=== PATIENT | female | born 1935 | race Caucasian/White ===

== ENCOUNTER 2017-10-23 08:18 | Observation (INO) | payer MEDICARE ==
--- NOTE | 2017-10-20 23:42 | HP ---
CC: Dr. Brent Stevens; Dr. Carlos Partida; Dr. Carol Arias, Cardiology, [facility] * ADMISSION HISTORY AND PHYSICAL: DATE OF ADMISSION: 10/23/17 ATTENDING SURGEON: Dr. Ronald Vargas.* (DICTATED BY MEAGHAN ALBERTS) CHIEF COMPLAINT: Left breast cancer. HISTORY OF PRESENT ILLNESS: This is an 82-year-old female, who is 2 years status post right mastectomy for breast cancer and followed by Dr. Partida, currently on Arimidex therapy. In early August she noticed a new left breast lump herself. She underwent mammography on 09/18/17, which showed 2 groups of microcalcifications in the superior portion of the left breast (medial and lateral) with a significant change in the number of microcalcifications. A biopsy was recommended. An ultrasound done the same date showed some dilated ducts at the 9 o'clock position of the breast, but otherwise, no sonographically identified mass per se. 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 I do not have ER or CT studies immediately available. The patient met with Dr. Vargas on 10/13/17. She felt strongly that she would prefer to undergo left mastectomy to be "done with it." Dr. Vargas has discussed with her the indication for surgery, the risks, benefits and alternatives and she would like to proceed as scheduled with left mastectomy. She expressed no interest in undergoing reconstruction. PAST MEDICAL HISTORY: Coronary artery disease, status post PCI with stenting and followed by Dr. Arias (see separate note). She is also treated for type 2 diabetes, hyperlipidemia, osteoporosis, anxiety and depression. PAST SURGICAL HISTORY: Previous surgeries include PCI with stent placement, pacemaker placement, total left hip arthroplasty and laparoscopic cholecystectomy. No reported surgical or anesthesia complications. CURRENT MEDICATIONS: 1. Oxybutynin ER 5 mg once daily. 2. Metoprolol succinate ER 25 mg once daily. 3. Ezetimibe 10 mg once daily. 4. Digoxin 125 mcg once daily. 5. Nitroglycerin 0.4 mg sublingual p.r.n. chest pain (has never used). 6. Pradaxa 150 mg b.i.d. (the patient was instructed to hold after her dose, though per Dr. Arias's note it could be stopped 48 hours preop). 7. Anastrozole 1 mg once daily. 8. Calcium 1200 mg once daily. 9. Vitamin D 1000 International Units once daily. 10. Clonazepam 0.5 mg 1/2 tablet b.i.d. 11. Escitalopram 20 mg once daily. 12. Fluticasone nasal spray, 1 spray each nostril once daily. 13. Glipizide 5 mg once daily. 14. Omeprazole 20 mg once daily. 15. Multivitamin once daily. DRUG ALLERGIES: None known. FAMILY HISTORY: Her sister may have had breast cancer, though it is not clear from the patient's history. No known family history of anesthesia problems, bleeding, or clotting disorders. SOCIAL HISTORY: The patient lives alone, though does have family members in the area. Her son-in-law accompanies her today. She is a former smoker of half pack per day for approximately 25 to 30 years, she quit 35 years ago. She denies alcohol use or any other recreational drug use. REVIEW OF SYSTEMS: General: No recent constitutional symptoms or acute illnesses other than described in the HPI. Eyes: No recent changes. Ears, Nose, Throat: No problems reported. Cardiovascular: She is followed by Dr. Arias (see separate attached note). She is off her Pradaxa as of today. Her last dose being on 10/19/17. Respiratory: Smoking history as noted. No history of COPD or asthma. No chronic cough or shortness of breath. GI: Apparent history of GERD, though I did not inquire specifically. No other problems reported. : No problems reported other than apparent overactive bladder. INSPECTOR FILTERS: See above per breast history. Neuro/Psych: History of anxiety and possible depression, some mild early dementia. Remainder of review of systems is negative. PHYSICAL EXAMINATION GENERAL: Well-nourished, well-developed female, who appears younger than her stated age of 82. VITAL SIGNS: Height 5 feet 3 inches, weight 150 pounds. Blood pressure 100/62 , pulse 84, respirations 18. HEENT: Pupils are equal, round, reactive. EOMs intact. No conjunctival pallor. Oropharynx: She has a full upper and partial lower denture. Remaining teeth are in good repair. BREASTS: (As per Dr. Vargas's note), she has a well-healed right mastectomy incision. On the left side, there is some ecchymosis and induration, possibly consistent with the recent biopsy. There is no palpable adenopathy and it was difficult to determine tumor mass versus post-biopsy swelling and induration. ABDOMEN: Soft, nontender to palpation. Well-healed surgical scars from cholecystectomy. No palpable santhosh or organomegaly. GENITALIA: Not done. RECTAL: Not done. BACK: No spinous process or CVA tenderness. EXTREMITIES: No edema. NEUROLOGICAL: Grossly intact, though she is only a fair historian in terms of some of her medical history detail. SKIN: Warm and dry. No suspicious rashes or lesions noted. 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 PLAN: Left mastectomy. MEAGHAN ALBERTS [id number]/[facility] #: [id number] BASHIR
[~2017-10-23 08:18] MED LIST: Buffered Lidocaine 0.9% SYRIN* 5 ML/SYR SYRINGE INTRADERM ONE; Famotidine IV* 10 MG/ML 2 ML (20 mg) IV ONE
[2017-10-23] MEDS ORDERED: Famotidine IV* 10 MG/ML 2 ML (20 mg) ONE (08:40)
[2017-10-23] MEDS ORDERED: ceFAZolin 2 GM PREMIX (*) 2 GM/50 ML BAG IVPB ONE (08:40)
[2017-10-23] MEDS ORDERED: Heparin VIAL(*) 5000 UNITS/ML VIAL (FIVE THOUSAND) ONE (08:40)
[2017-10-23] MEDS ORDERED: Buffered Lidocaine 0.9% SYRIN* 5 ML/SYR SYRINGE ONE (08:41)
[2017-10-23] MEDS ORDERED: fentaNYL* 50 MCG/ML 2 ML VIAL (100 MCG VIAL) ONE ×2 (10:07→11:11)
[2017-10-23] MEDS ORDERED: Phenylephrine IV* 40 MCG/ML 10 ML SYRINGE ONE (10:30)
[2017-10-23] MEDS ORDERED: Lidocaine 2% PF * 5 ML VIAL ONE (10:30)
[2017-10-23] MEDS ORDERED: Propofol* 10 MG/ML 20 ML BTL IV PUSH ONE (10:30)
[2017-10-23] MEDS ORDERED: HYDROcodone/ACETAMIN 5-325 MG* 1 TAB PO PRN (10:52)
[2017-10-23] MEDS ORDERED: HYDROmorphone INJ* 0.5 MG/0.5 ML SYRINGE IV PRN (10:52)
[2017-10-23] MEDS ORDERED: Acetaminophen TAB* 325 MG PO PRN (10:52)
[2017-10-23] MEDS ORDERED: Ondansetron INJ* 2 MG/ML VIAL IV PRN (10:52)
[2017-10-23] MEDS ORDERED: Naloxone* 0.4 MG/ML 1 ML VIAL IV PRN (10:55)
[2017-10-23] MEDS ORDERED: DiMENhydriNATE IV* 50 MG/ML VIAL IV PUSH PRN (10:55)
[2017-10-23] MEDS: fentaNYL* 50 MCG/ML 2 ML VIAL (100 MCG VIAL) IV PRN ×3 (11:11→12:08)
[2017-10-23] MEDS ORDERED: Nitroglycerin TAB 0.4 MG* 0.4 MG TAB SL PRN (12:00)
[2017-10-23] MEDS ORDERED: HYDROcodone/ACETAMIN 5-325 MG* 1 TAB ONE (12:06)
[2017-10-23] MEDS: Heparin VIAL(*) 5000 UNITS/ML VIAL (FIVE THOUSAND) SUBCUT SCH ×2 (14:38→22:19)
[2017-10-23] MEDS ORDERED: Oxybutynin TAB* 5 MG PO SCH (18:00)
[2017-10-23] MEDS ORDERED: Ezetimibe TAB* 10 MG PO SCH (21:00)
[2017-10-23] MEDS ORDERED: clonazePAM TAB(*) 0.5 MG PO SCH (21:00)
[2017-10-23] MEDS: [UNRECOGNIZED DRUG - OTHER] PO SCH (22:19)
--- NOTE | 2017-10-23 23:07 | OP ---
CC: Dr. Stevens; Dr. Partida * DATE OF OPERATION: 10/23/17 - ROOM #343 DATE OF : 35 SURGEON: Ronald Vargas MD LEAD EMBEDDED SOFTWARE ENGINEER: Lexie Pastor NP ANESTHESIOLOGIST: Dr. Schuster. ANESTHESIA: General anesthetic. PRE-OP DIAGNOSIS: Ductal carcinoma in situ, left breast. POST-OP DIAGNOSIS: Ductal carcinoma in situ, left breast. OPERATIVE PROCEDURE: Left simple mastectomy. DESCRIPTION OF PROCEDURE: The patient was supine on the operative table. After adequate general anesthetic, compression stockings, Jackson Hugger warmer, a magnet was placed over the pacemaker, Tegaderm was used to hold this in place and then the whole area was prepped with antiseptic, draped in a sterile fashion. The Tegaderm was draped out of the field. The mastectomy incision was mapped out in the usual lips and incision was created and the inferior and superior flaps were created. The mastectomy was carried out over the pectoralis muscle and specimen was sent in formalin with the suture marking lateral. Hemostasis was obtained using cautery or suture where appropriate and the closure was then accomplished using 3-0 Vicryl followed by surgical jeffery. A Estuardo-Garcia drain was placed through a stab wound and sutured at the skin using 3-[address] He tolerated the procedure well, was brought to recovery. There were no complications. Drain is Estuardo-Garcia. Sponge and instrument counts were correct. Specimen is mastectomy. [id number]/[facility] #: [id number] [facility]
[2017-10-24] MEDS: Heparin VIAL(*) 5000 UNITS/ML VIAL (FIVE THOUSAND) SUBCUT SCH (05:30)
[2017-10-24] MEDS ORDERED: Omeprazole CAP* 20 MG PO SCH (07:30)
[2017-10-24 08:20] VITALS: BP 113/54
[2017-10-24] MEDS: [UNRECOGNIZED DRUG - OTHER] PO SCH (08:31)
[2017-10-24] MEDS ORDERED: Metoprolol Succinate XL TAB* 25 MG PO SCH (09:00)
[2017-10-24] MEDS ORDERED: clonazePAM TAB(*) 0.5 MG PO SCH (09:00)
[2017-10-24] MEDS ORDERED: Digoxin TAB* 0.125 MG PO SCH (09:00)
[2017-10-24] MEDS ORDERED: glipiZIDE TAB* 5 MG PO SCH (09:00)
[2017-10-24] MEDS ORDERED: CMCS:Anastrozole (NF) 1 MG TAB PO SCH (09:00)
--- NOTE | 2017-10-24 09:49 | PN ---
Progress Note - Progress Note Date of Service: 10/24/17 Note: S: POD #1. Seen with Dr. Vargas. Denies pain. No specific complaints. Voiding well. No BM. Belinda diet. O: Vital Signs - 8 hr 10/24/17 10/24/17 10/24/17 03:39 06:34 07:34 Temperature 99.4 F 98.3 F Pulse Rate 62 65 Respiratory 16 16 16 Rate Blood Pressure 116/48 113/54 (mmHg) O2 Sat by Pulse 98 94 Oximetry 10/24/17 10/24/17 10/24/17 08:00 08:30 08:31 Temperature Pulse Rate 72 Respiratory 18 18 Rate Blood Pressure (mmHg) O2 Sat by Pulse 94 Oximetry Intake and Output Last 24 Hours 10/22/17 10/23/17 10/24/17 10/25/17 06:59 06:59 06:59 06:59 Intake Total 2460 956 Output Total 2057 300 Balance 403 656 Weight 148 lb Intake: IV Fluids 1000 411 LR 1000 IVPB 980 LR 980 Oral 480 545 Output: SANDHYA #1 57 Urine 2000 300 Other: Estimated Void Large # Voids 1 Gen: NAD Heart: reg w/ occ irreg beat Lungs: clear (few L basilar crackles) Left chest wall clean and dry; no bleeding; no hematoma. SANDHYA light serosang A: s/p Left mastectomy, doing well P: home today w/ SANDHYA drain. She has a f/u scheduled at the [facility] on 10/27/17.
--- NOTE | 2017-10-24 21:38 | DS ---
AMENDED REPORT NOW INCLUDES COSIGNER DESIGNATION - ESIGNED BEFORE ADJUSTMENT CC: Dr. Brent Stevens; Dr. Carlos Partida; Dr. Carol Arias * DISCHARGE SUMMARY: DATE OF ADMISSION: 10/23/17 DATE OF DISCHARGE: 10/24/17 ATTENDING SURGEON: Dr. Ronald Vargas.* (DICTATED BY MEAGHAN ALBERTS) HOSPITAL COURSE: Please refer to the admission history and physical for admission details. The patient was taken to the operating room on 10/23/17, at which time, she underwent left simple mastectomy with Dr. Vargas, a Estuardo- Garcia drain was placed, she tolerated the procedure well and as at the morning of discharge, she is relatively pain free. The patient was seen by Dr. Vargas. PHYSICAL EXAMINATION: Vital Signs: Temperature 98.3, blood pressure 113/54, pulse 72, respirations 18, room air saturation 94%. General: No acute distress. Heart: Regular rate and rhythm with occasional irregular beat. Lungs : Clear to auscultation and few left basilar crackles. Left chest wall reveals a clean incision without active bleeding. No drainage. No hematoma. SANDHYA drain with light serosanguineous drainage. IMPRESSION: Status post left mastectomy, doing well. PLAN: Home today with drain. She does have a followup schedule on Friday, 06/[address] Vargas at [facility]. She will resume all of her usual medications with the exception of Pradaxa, which she will resume beginning tomorrow, 10/25/17. She does have a prescription for [place] p.r.n. stronger pain , though it is not anticipated to be needed. MEAGHAN ALBERTS [id number]/[facility] #: [id number] [facility]
== END 2017-10-24 11:55 | disposition home or self-care (01) ==
LOC: OR 08:18 → SSU 13:51
PROVIDERS: ADMIT Surgery; ATTEND Surgery
PROC: 0HTU0ZZ Resection of Left Breast, Open Approach (ICD-10-PCS; principal; 2017-10-23 10:30)
DX: C50.912 Malignant neoplasm of unspecified site of left female breast (principal); I25.10 Atherosclerotic heart disease of native coronary artery without angina pectoris; Z95.5 Presence of coronary angioplasty implant and graft; Z95.0 Presence of cardiac pacemaker; E11.9 Type 2 diabetes mellitus without complications; E78.5 Hyperlipidemia, unspecified; M81.0 Age-related osteoporosis without current pathological fracture; F41.9 Anxiety disorder, unspecified; F32.9 Major depressive disorder, single episode, unspecified; Z79.899 Other long term (current) drug therapy; Z79.01 Long term (current) use of anticoagulants; Z87.891 Personal history of nicotine dependence
CPT/HCPCS: 88307; 88360; 96372; A9270-GY; G0378; J0690; J1644; J2704; J3010